=== PATIENT | female | born 1960 | race Caucasian/White ===

== ENCOUNTER 2023-05-01 08:18 | Outpatient (OUT) | payer OTHER, SELFPAY ==
[2023-05-01 08:41] LABS: Basophils Absolute Auto 0.1 10^3/uL (0.0-0.1); Eosinophils Absolute Auto 0.1 10^3/uL (0.0-0.7); Eosinophils Percent Auto 1.4 % (0.9-7.0); Hematocrit 36.8 % (36.0-48.0); Immature Granulocytes Abs Auto 0.03 10^3/uL (0.00-0.03); Immature Granulocytes Pct Auto 0.5 % (0.0-0.5); Lymphocytes Absolute Auto 1.4 10^3/uL (1.2-3.8); Lymphocytes Percent Auto 21.8 % (20.5-60.0); Mean Corpuscular HGB Conc 32.6 g/dL (29.9-35.2); Mean Corpuscular Hemoglobin 28.4 pg (26.7-34.0); Mean Corpuscular Volume 87.2 fL (81.0-99.0); Mean Platelet Volume 9.8 fL (9.5-13.5); Monocytes Percent Auto 15.4 % (1.7-12.0); Neutrophils Absolute Auto 3.7 10^3/uL (1.4-6.5); Neutrophils Percent Auto 59.9 % (43.0-75.0); Platelet Count 312 10^3/uL (150-450); Red Blood Count 4.22 10^6/uL (4.20-5.40); Red Cell Distribution Width 12.9 % (11.0-15.0); White Blood Count 6.2 10^3/uL (4.0-11.0)
[2023-05-01 09:45] LABS: Alanine Aminotransferase 20 U/L (14-59); Albumin Globulin Ratio 1.1; Albumin Level 3.6 g/dL (3.4-5.0); Alkaline Phosphatase 71 U/L (46-116); Anion Gap 13.8; Aspartate Amino Transferase 13 U/L (15-37); BUN Creatinine Ratio 23.4; Bilirubin Total 0.3 mg/dL (0.2-1.0); Carbon Dioxide 27.4 mmol/L (21.0-32.0); Chloride 103 mmol/L (98-107); Estimated GFR (African America >60 (>=60); Estimated GFR (Non-African Ame >60 (>=60); Free T3 2.41 pg/mL (2.18-3.98); Globulin 3.4 g/dL; Glucose 102 mg/dL (74-106); Potassium 4.2 mmol/L (3.5-5.1); Sodium 140 mmol/L (136-145); Thyroid Stimulating Hormone 0.992 uIU/mL (0.358-3.740)
[2023-05-01 09:46] LABS: Estimated Average Glucose 103 mg/dL; Glycohemoglobin A1C 5.2 % (4.5-6.2)
== END 2023-05-01 08:19 | disposition home or self-care (01) ==
PROVIDERS: PCP Family Medicine; Visit Provider Family Medicine
DX: R06.00 Dyspnea, unspecified (principal); R73.09 Other abnormal glucose; D64.9 Anemia, unspecified; I11.0 Hypertensive heart disease with heart failure; I50.30 Unspecified diastolic (congestive) heart failure
CPT/HCPCS: 36415; 80053; 83036; 83540; 83880; 84436; 84443; 84481; 85025

== ENCOUNTER 2024-03-30 07:09 | Outpatient (RCR) | payer OTHER, SELFPAY ==
--- NOTE | 2023-10-15 12:26 | CR1_ITS ---
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
--- NOTE | 2023-11-10 13:21 | CR1_ITS ---
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
--- NOTE | 2023-12-08 12:59 | CR1_ITS ---
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
--- NOTE | 2024-01-04 15:02 | CR1_ITS ---
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
--- NOTE | 2024-02-03 14:15 | CR1_ITS ---
The [facility] Test Date: 2024-02-03 Pat Name: CHARANJIT CARRANZA Department: Room: - Gender: Female [employer]: : 1960 Requested By: TIFFANI MARK Order Number: [id number] Ibrahima MD: THOR FRAZIER Interpretive Statements Session Date: Electronically Signed On 02-03-2024 15:29:53 EDT by THOR FRAZIER
--- NOTE | 2024-03-09 09:39 | CR1_ITS ---
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
== END 2024-04-04 06:59 | disposition home or self-care (01) ==
LOC: CR 07:09
PROVIDERS: PCP Family Medicine
DX: Z95.2 Presence of prosthetic heart valve (principal)
CPT/HCPCS: 93798

== ENCOUNTER 2025-05-09 13:37 | Outpatient (OUT) | payer MEDICARE, SELFPAY ==
--- NOTE | 2025-05-09 13:50 | XR_ITS ---
The [address] [address] Patient Name: CHARANJIT CARRANZA MRN: [id number] date: 1960 Sex: F Assigned Patient Location: [facility] Current Patient Location: [facility] Accession/Order Number: [id number] Exam Date: 05/09/2025 14:13 Report Date: 05/09/2025 15:53 At the request of: TIFFANI MARK MD Procedure: XR knee WU 3V Bilateral knee series 3 views each. Reason for exam: Lateral knee pain for 5 months. COMPARISON: None. FINDINGS: Right knee demonstrates mild degenerative change without acute bony process. No knee joint effusion. Left knee demonstrates mild degenerative changes without acute bony process or knee joint effusion. 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 XR/XR knee WU 3V IMPRESSION: Mild degenerative changes of the knees without acute bony process. Impression dictated by: Guy Garnett Jr., D.ODavina 05/09/2025 3:53 PM Dictation Location: [place] [address] Electronically authenticated by: [id number] Y Date: 05/09/2025 15:53
== END 2025-05-09 13:38 | disposition home or self-care (01) ==
PROVIDERS: PCP Family Medicine; Visit Provider Family Medicine
DX: M17.0 Bilateral primary osteoarthritis of knee (principal)
CPT/HCPCS: 73562